=== PATIENT | male | born 1980 | race Two or more races ===

== ENCOUNTER 2018-12-18 21:17 | Emergency (ER) | payer OTHER ==
--- NOTE | 2018-12-18 21:30 | ED Physician Documentation ---
PD HPI ABD PAIN - Stated complaint Stated Complaint: ABD PX - Chief complaint Chief Complaint: Abd Pain - History obtained from History obtained from: Patient - History of Present Illness Timing - onset: How many hours ago (several hours ago with worsened pain; initially was hurting yesterday.), Yesterday Timing - duration: Days (06/23) Timing - details: Abrupt onset (had onset of left flank to abd pain yesterday, feeling similar to prior kidney stones. he is visiting from [place], returning tomorrow. Went to Urgent Care facility and Dx with presumed kidney stone. Rx with flomax and Vicodin. Patient doing okay with that until today, when pain increased abruptly and patient was nauseated, and the Rx meds did not help.) Quality: Cramping, Aching, Pain (severe) Location: LLQ Radiation: Left flank Improved by: No: Laying still, Meds Worsened by: No: Moving, Breathing Associated symptoms: Nausea. No: Diarrhea, Dysuria, Hematuria, Near syncope / syncope, Loss of appetite Similar symptoms before: Diagnosis (kidney stones twice in the past) Recently seen: Clinic (urgent care yesterday) Review of Systems Constitutional: denies: Fever, Myalgias Nose: denies: Rhinorrhea / runny nose, Congestion Throat: denies: Sore throat Cardiac: denies: Chest pain / pressure, Palpitations Respiratory: denies: Dyspnea, Cough GI: reports: Abdominal Pain, Nausea. denies: Abdominal Swelling, Diarrhea : denies: Dysuria, Hematuria Skin: denies: Rash, Lesions Neurologic: denies: Focal weakness, Near syncope, Altered mental status, Headache PD PAST MEDICAL HISTORY - Past Medical History Cardiovascular: None Respiratory: None - Present Medications Home Medications: Ambulatory Orders Medication Instructions Recorded Confirmed Fluticasone/Vilanterol [Breo 1 each IH DAILY 12/18/18 12/18/18 Ellipta 100-25 Mcg INH] HYDROcod/ACETAM 5/325 [[place] 5/325] 1 - 2 ea PO Q6H PRN 12/18/18 12/18/18 Ondansetron Odt [Zofran] 4 mg TL Q6H PRN #10 tablet 12/18/18 Oxycodone HCl/Acetaminophen 1 - 2 each PO Q6H PRN #20 tablet 12/18/18 [Percocet 5-325 mg Tablet] RX: Naproxen 500 mg PO BID #20 tablet 12/18/18 Tamsulosin [Flomax] 0.4 mg PO DAILY 12/18/18 12/18/18 - Allergies Allergies/Adverse Reactions: Allergies Allergy/AdvReac Type Severity Reaction Status Date / Time No Known Drug Allergies Allergy Verified 12/18/18 21:24 PD ED PE NORMAL - Vitals Vital signs reviewed: Yes - General General: Alert and oriented X 3, Well developed/nourished, Other (appears in considerable pain, but is still pleasant and cooperative. ) - Neck Neck: Supple, no meningeal sign, No adenopathy - Cardiac Cardiac: RRR, No murmur - Respiratory Respiratory: Clear bilaterally - Abdomen Abdomen: Normal bowel sounds, Soft, Non distended, No organomegaly, Other (minimally tender left lower abd. There is moderate to significant CVA tenderness to percussion. ) - Derm Derm: Normal color, Warm and dry, No rash - Extremities Extremities: No tenderness to palpate, Normal ROM s pain, No edema, No calf te nderness / cord - Neuro Neuro: Alert and oriented X 3 Eye Opening: Spontaneous Motor: Obeys Commands Verbal: Oriented GCS Score: 15 Results - Vitals Vitals: Vital Signs - 24 hr 12/18/18 12/18/18 12/18/18 21:20 22:15 23:04 Temperature 36.7 C 36.5 C Heart Rate 80 84 85 Respiratory 18 16 16 Rate Blood Pressure 160/84 H 144/99 H 117/82 H O2 Saturation 100 99 97 Oxygen O2 Source Room air - Labs Labs: Laboratory Tests 12/18/18 23:07 Urine Color YELLOW Urine Clarity CLEAR Urine pH 6.0 Ur Specific [place] <=1.005 Urine Protein NEGATIVE Urine Glucose (UA) NEGATIVE Urine Ketones 15 H Urine Occult Blood MODERATE H Urine Nitrite NEGATIVE Urine Bilirubin NEGATIVE Urine Urobilinogen 0.2 (NORMAL) Ur Leukocyte Esterase NEGATIVE Urine RBC 0-5 Urine WBC 0-3 Ur Squamous Epith Cells NONE SEEN Urine Bacteria None Seen Ur Microscopic Review INDICATED Urine Culture Comments NOT INDICATED PD MEDICAL DECISION MAKING - ED course Complexity details: re-evaluated patient (He is feeling much better with the combination of medications given IV.), considered differential (Sounds like kidney stone pain and he has had similar in the past. Shared decision was to not do any imaging at this time and treated as a presumed small and possible stone.), d/w patient Departure - Departure Disposition: 01 Home, Self Care Clinical Impression: Left sided abdominal pain, Ureterolithiasis Condition: Stable Record reviewed to determine appropriate education?: Yes Health Concerns: abdomen and back pain Plan of Treatment: treat as kidney stone passing Care Goals: resolution of symptoms Assessment: Ureterolithiasis with control of pain for now and prescriptions will be given. Instructions: ED Stone Renal W Colic Prescriptions: RX: Naproxen 500 mg PO BID #20 tablet Ondansetron Odt [Zofran] 4 mg TL Q6H PRN #10 tablet PRN Reason: Nausea / Vomiting Oxycodone HCl/Acetaminophen [Percocet 5-325 mg Tablet] 1 - 2 each PO Q6H PRN #20 tablet PRN Reason: pain Comments: Stay well-hydrated. Use some anti-inflammatories such as naproxen twice daily with food. Ondansetron if needed for nausea. Continue the tamsulosin. For pain medication, you can take 1-2 of the hydrocodone pain medicines you had from the urgent care. Alternatively can try oxycodone which is slightly stronger and take 1-2 every 4-6 hours as needed for pain. Follow-up with your primary care back home if not improved over the next few days. We will send you with the disc of your CT scan so they can see the images if they want back home. Discharge Date/Time: 12/18/18 23:45
[2018-12-18] MEDS ORDERED: ONDANSETRON 4 MG/2 ML VIAL IVP STA (21:46)
[2018-12-18] MEDS ORDERED: KETOROLAC 30 MG/ML VIAL IVP STA (21:46)
[2018-12-18] MEDS ORDERED: MORPHINE 10 MG/ML VIAL IVP STA (21:46)
[2018-12-18] MEDS ORDERED: LIDOCAINE-MPF 2% 8 ML in SODIUM CHLORIDE 0.9% 50 ML IV STA (21:46)
[2018-12-18] MEDS ORDERED: SODIUM CHLORIDE 0.9% 1,000 ML IV ONE (21:46)
[2018-12-18 23:05] VITALS: BP 117/82
[2018-12-18 23:13] LABS: BILIRUBIN,URINE NEGATIVE (NEGATIVE); GLUCOSE, URINE (UA) NEGATIVE (NEGATIVE); KETONES,URINE (UA) 15 mg/dL (NEGATIVE); LEUKOCYTE ESTERASE, URINE NEGATIVE (NEGATIVE); NITRITE,URINE NEGATIVE (NEGATIVE); OCCULT BLOOD,URINE MODERATE (NEGATIVE); PROTEIN,URINE NEGATIVE (NEGATIVE); UROBILINOGEN,URINE 0.2 (NORMAL) E.U./dL (NORMAL)
--- NOTE | 2018-12-18 23:14 | CT Report ---
Reason: left flank to abd pain for 2 days Procedure Date: 12/18/2018 Accession Number: [id number] / [id number] Procedure: CT - Abdomen/Pelvis WO CPT Code: FULL RESULT: EXAM: CT ABDOMEN AND PELVIS (CT KUB) EXAM DATE: 12/18/2018 10:44 PM. CLINICAL HISTORY: Left flank to abd pain for 2 days. COMPARISONS: None. TECHNIQUE: Routine axial helical CT imaging was performed through the abdomen and pelvis without IV contrast. Reconstructions: Coronal and sagittal. In accordance with CT protocol optimization, one or more of the following dose reduction techniques were utilized for this exam: automated exposure control, adjustment of mA and/or KV based on patient size, or use of iterative reconstructive technique. FINDINGS: Lung Bases: Unremarkable. Right Kidney/Ureter: There are nonobstructing stones within the right kidney. There is no evidence of distal obstructing stone or hydronephrosis. Left Kidney/Ureter: There is mild to moderate left hydronephrosis, hydroureter, and perinephric stranding secondary to a 0.6 x 0.4 cm stone within the mid left ureter. Other Solid Organs: There is hepatic steatosis. The spleen, pancreas, and adrenal glands demonstrate no acute abnormalities. Gallbladder/Bile Ducts: Unremarkable. Peritoneal Cavity: No free fluid, free air or nandini adenopathy. Bowel is grossly unremarkable. Pelvic Organs: No bladder stones or wall thickening. Noncontrast images of the visualized pelvic organs are unremarkable. Vasculature: Unremarkable. Other: None. IMPRESSION: 1. There is mild to moderate left hydronephrosis, hydroureter, and perinephric stranding secondary to a 0.6 x 0.4 cm stone within the mid left ureter. 2. There are nonobstructing stones within the right kidney. 3. No acute gastrointestinal tract abnormalities. 4. There is hepatic steatosis. [facility]
[2018-12-18 23:15] LABS: CLARITY,URINE CLEAR (CLEAR)
[2018-12-18 23:22] LABS: BACTERIA,URINE None Seen /HPF (None Seen); RBC,URINE 0-5 /HPF (0-5); SQUAMOUS EPITHELIAL CELL,UR NONE SEEN (<= Few)
[2018-12-18] MEDS ORDERED: DEXAMETHASONE 10 MG/ML VIAL IVP STA (23:26)
== END 2018-12-18 23:45 | disposition home or self-care (01) ==
LOC: ED 21:17
DX: N13.2 Hydronephrosis with renal and ureteral calculous obstruction (principal); N20.2 Calculus of kidney with calculus of ureter; Z87.442 Personal history of urinary calculi
CPT/HCPCS: 74176; 81001; 96361; 96374; 96375; 99283; 99284; J7040; 81003; 87086